=== PATIENT | female | born 1960 | race Caucasian/White ===

== ENCOUNTER 2023-01-07 19:39 | Emergency (ER) | payer BC, SELFPAY ==
--- NOTE | ~2023-01-07 | XR_ITS ---
EXAMINATION: [id number] DATE: 01/07/2023 20:05 INDICATION: Left rib pain post fall TECHNIQUE: PA view of the chest and 3 views of the left ribs were obtained. COMPARISON: Chest radiograph dated 07/07/2017 FINDINGS: No rib fractures identified. No focal airspace opacities, pulmonary edema, pleural effusion or pneumo thorax. Cardiomediastinal silhouette is normal. Cholecystectomy clips in right upper quadrant. IMPRESSION: 1. No rib fracture or acute cardiopulmonary disease. Reviewed, dictated and finalized at location [facility]
[2023-01-07 19:51] VITALS: BP 131/82; PULSE 92; RESP 16; TEMP 36.6; O2SAT 94
--- NOTE | 2023-01-07 20:08 | ED.BACK ---
HPI - Back Pain/Injury General Chief Complaint: Back Pain/Injury Stated Complaint: Chest and Back Pain Time Seen by Provider: 01/07/23 20:08 Source: patient Mode of arrival: ambulatory Limitations: no limitations History of Present Illness HPI Narrative: 62-year-old female presents with complaint of pain to left upper chest/ rib area. Patient states that she picked her dog up from kennel and it jumped up on her and threw her against her car. Patient reports difficulty taking a deep breath. Is concerned that she has a rib fracture. Ambulatory with steady gait. All systems reviewed and negative except as noted above. Related Data Home Medications Medication Instructions Recorded Confirmed empagliflozin 25 mg tablet 25 mg PO DAILY 01/07/23 01/07/23 (Jardiance) glipizide 10 mg tablet, extended 10 mg PO DAILY 01/07/23 01/07/23 release 24 hr rosuvastatin 10 mg tablet 10 mg PO DAILY 01/07/23 01/07/23 Allergies Allergy/AdvReac Type Severity Reaction Status Date / Time metformin Allergy Unknown GI upset Verified 01/07/23 20:04 Penicillins Allergy Unknown Unknown Verified 01/07/23 20:04 Sulfa (Sulfonamide Allergy Unknown Unknown Verified 01/07/23 20:04 Antibiotics) Review of Systems Review of Systems: CONSTITUTIONAL: Denies fever, chills, or sweats. EYES: Denies visual changes, redness, or discharge. ENT: Denies rhinorrhea, congestion, sore throat, or otalgia. CARDIOVASCULAR: Denies chest pain, palpitations, or edema. RESPIRATORY: Denies cough or dyspnea. GASTROINTESTINAL: Denies abdominal pain, nausea, vomiting, or diarrhea. GENITOURINARY: Denies dysuria or hematuria. SKIN: Denies rash or itching. MUSCULOSKELETAL: Denies back pain, joint pain, or myalgia. Reports left upper chest pain. NEUROLOGIC: Denies headache, numbness, or weakness. PSYCHIATRIC: Denies anxiety or depression. All other systems reviewed are negative, except as documented in HPI. [facility] Family History Family History (Updated 12/07/17 @ 09:58 by DOCTOR UNKNOWN) Father Hypertension Family history of cardiovascular disease Mother Family history of ulcerative colitis Family history of diabetes mellitus in first degree relative Family history of lymphoma Grandparent Family history of malignant neoplasm Family history of diabetes mellitus in first degree relative Other Asthma Diabetes mellitus Family history of congestive heart failure Family history of hearing loss Social History Social History Smoking status: Never smoker Alcohol intake: current Comments At time of signature, agree with nursing past medical, surgical, social and family history. There is no relevant family history pertinent to the presenting complaint. Exam Narrative: GENERAL: This is a well-nourished, well-developed patient, in no apparent distress. HEAD: normocephalic, atraumatic. EYES: PERRL. Sclera clear/white. Vision is grossly intact. EARS: External ears normal NOSE: External nose normal NECK: Neck supple, non-tender without lymphadenopathy, masses or thyromegaly. CARDIOVASCULAR: Regular rate and rhythm without murmurs, gallops, or rubs. RESPIRATORY: Clear to auscultation. Breath sounds equal bilaterally. No wheezes, rales, or rhonchi. SKIN: warm, Dry, intact with no suspicious lesions or rash, good texture and turgor. NEURO: awake, alert, and oriented to person, place and time. There were no obvious focal neurologic abnormalities. EXTREMITIES: No joint tenderness, effusion, or edema noted. MUSCULOSKELETAL: tenderness to L upper chest 4th to 6th ribs BACK: Nontender without deformity. Chest: Chest/axillae images: 1. Tender on palpation Course Course Level of Care: Express Care Visit Vital Signs Vital signs: Vital Signs Temperature 36.6 C 01/07/23 19:51 Pulse Rate 92 01/07/23 19:51 Respiratory Rate 16 01/07/23 19:51 Blood Pressure 131/82 01/07/23 19:51 Pulse Oximetry 94 01/07/23 19:51 Oxy
== END 2023-01-07 20:24 | disposition home or self-care (01) ==
PROVIDERS: Emergency Provider Nurse Practitioner Family; PCP Nurse Practitioner Family
DX: S20.212A Contusion of left front wall of thorax, initial encounter (principal); W54.1XXA Struck by dog, initial encounter
CPT/HCPCS: 71101; 99213; G0463